=== PATIENT | female | born 1995 | race Hispanic/Latino ===

== ENCOUNTER 2023-12-26 14:11 | Emergency (ER) | payer OTHER ==
[2023-12-26] MEDS ORDERED: Cyclobenzaprine 10 MG TAB ONE (14:31)
== END 2023-12-26 15:07 | disposition home or self-care (01) ==
LOC: MADERS 14:11
DX: R07.89 Other chest pain (principal); Z55.6 Problems related to health literacy; V89.2XXA Person injured in unspecified motor-vehicle accident, traffic, initial encounter
CPT/HCPCS: 71046